=== PATIENT | male | born 1945 | race Hispanic/Latino ===

== ENCOUNTER 2023-03-22 17:57 | Inpatient (IN) | payer MEDICARE ==
[~2023-03-22] VITALS: Ht 165.1 cm; Wt 91.1 kg
[2023-03-22] MEDS ORDERED: DEXAMETHASONE SOD PHOSPHATE 4 MG/ML 1ML VIAL IVP ONE (18:30)
[2023-03-22] MEDS: LACTATED RINGERS 1000ML 1,000 ML IV SCH (20:26)
[2023-03-22] MEDS: CEFTAZIDIME PENTAHYDRATE 1 GM/VIAL IVPB SCH (20:26)
[2023-03-23] VITALS (22 sets, daily range): BP systolic 155–182; BP diastolic 67–104; PULSE 79–103; RESP 10–19; O2SAT 0–97
[2023-03-23] MEDS: CEFTAZIDIME PENTAHYDRATE 1 GM/VIAL IVPB SCH ×3 (03:20→19:37)
[2023-03-23] MEDS: INSULIN HUMULIN R 100 UNIT/ML 3ML SQ SCH ×9 (06:22→20:49)
[2023-03-23 06:57] LABS: HEMATOCRIT 37.7 % (42-54); IMMATURE GRANULOCYTE ABSOLUTE 0.03 K/uL (0-1); LYMPHOCYTES # (AUTO) 0.5 K/uL (1.0-4.8); LYMPHOCYTES % (AUTO) 7.9 % (21.0-51.0); MEAN CORPUSCULAR HEMOGLOBIN 30.5 pg (27.0-33.0); MEAN CORPUSCULAR HGB CONC 32.9 g/dL (32.0-36.0); MEAN CORPUSCULAR VOLUME 92.6 fL (79-99); MONOCYTES # (AUTO) 0.1 K/uL (0.1-1.0); MONOCYTES % (AUTO) 1.2 % (3.0-13.0); NEUTROPHILS # (AUTO) 5.5 K/uL (1.8-7.7); NEUTROPHILS % (AUTO) 90.4 % (40.0-77.0); PLATELET COUNT (AUTO) 145 K/uL (130-400); RED BLOOD CELL COUNT(AUTO) 4.07 MIL/uL (4.50-6.20); RED CELL DISTRIBUTION WIDTH 14.9 % (11.0-15.5); WHITE BLOOD COUNT (AUTO) 6.1 K/uL (4.8-10.8)
[2023-03-23 07:17] LABS: ALBUMIN 3.2 g/dL (3.5-5.0); BILIRUBIN,TOTAL 0.3 mg/dL (0.2-1.0); POTASSIUM 4.2 mmol/L (3.5-5.1); TOTAL PROTEIN, SERUM 7.4 g/dL (6.0-8.3)
[2023-03-23] MEDS ORDERED: CIPROFLOXACIN HCL/DEXAMETH 7.5 ML DROPS.SUSP OTIC ONE (08:00)
[2023-03-23] MEDS ORDERED: MIDAZOLAM HCL 1 MG/ML 2ML VIAL ONE (08:02)
[2023-03-23] MEDS ORDERED: LIDOCAINE PF 100MG/5ML (2%) SYRINGE 5ML ONE (08:02)
[2023-03-23] MEDS ORDERED: FENTANYL CITRATE PF 50 MCG/1 ML 2ML VIAL ONE (08:03)
[2023-03-23] MEDS ORDERED: PROPOFOL 10 MG/ML 20ML VIAL IV ONE (08:03)
[2023-03-23] MEDS ORDERED: ROCURONIUM 10MG/1ML SYR 10 MG/ML ML ONE (08:03)
[2023-03-23] MEDS ORDERED: LIDOCAINE 2%-EPI 1:200,000 20 ML VIAL IJ ONE ×2 (08:20→08:31)
[2023-03-23] MEDS: LACTATED RINGERS 1000ML 1,000 ML IV SCH (08:20)
[2023-03-23 08:22] LABS: SARS-CoV-2, RNA, NAAT NEGATIVE SARS CoV-2 (NEGATIVE)
[2023-03-23] MEDS ORDERED: CIPROFLOXACIN HCL 0.3% 2.5ML DROPS OP ONE (08:28)
[2023-03-23] MEDS ORDERED: LIDOCAINE HCL 1% 10 ML VIAL ONE (08:29)
[2023-03-23] MEDS ORDERED: EPHEDRINE SULFATE 50 MG/ML AMPULE ONE (08:36)
[2023-03-23] MEDS ORDERED: PHENYLEPHRINE HCL 10 MG/ML 1ML VIAL IV ONE (08:45)
[2023-03-23] MEDS ORDERED: ONDANSETRON 4MG INJ ONE (08:53)
[2023-03-23] MEDS ORDERED: LABETALOL 20MG SYG IV ONE (09:29)
[2023-03-23] MEDS ORDERED: GLUCAGON 1MG KIT 1 MG ML IM PRN (11:30)
[2023-03-23] MEDS ORDERED: DEXTROSE 50%-WATER 50 ML DISP.SYRIN IV PRN (11:30)
[2023-03-23 11:39] LABS: CRP QUANTITATIVE 10.8 mg/L (0.00-9.0)
[2023-03-23] MEDS ORDERED: DIPHENHYDRAMINE HCL 25 MG CAPSULE PO PRN (12:00)
[2023-03-23] MEDS: ACETAMINOPHEN WITH CODEINE 1 TAB TAB PO PRN ×2 (12:23→19:42)
[2023-03-23] MEDS ORDERED: HYDRALAZINE 20MG/ML VIAL IV PRN (12:30)
[2023-03-23] MEDS: TORSEMIDE 20 MG TAB PO SCH (12:42)
[2023-03-23] MEDS ORDERED: CARV25TA PO (18:44)
[2023-03-23] MEDS ORDERED: DILT60CA PO (18:44)
[2023-03-23] MEDS ORDERED: PIOG30TA70 PO (18:44)
[2023-03-23] MEDS ORDERED: TORS5TAB12 PO (18:44)
[2023-03-23] MEDS ORDERED: RIVA20TA PO (18:44)
[2023-03-23] MEDS ORDERED: OMEP20CA12 PO (18:44)
[2023-03-23] MEDS ORDERED: VITAD50000 PO (18:44)
[2023-03-23] MEDS ORDERED: CALC0.253 PO (18:44)
[2023-03-23] MEDS: DILTIAZEM 60MG TAB PO SCH (19:42)
[2023-03-23] MEDS: INSULIN GLARGINE 100 UNITS/ML 10 ML VIAL SQ SCH (20:48)
[2023-03-24] VITALS (9 sets, daily range): BP systolic 118–162; BP diastolic 64–99; PULSE 72–97; RESP 18–19; O2SAT 96–97
[2023-03-24] MEDS: CEFTAZIDIME PENTAHYDRATE 1 GM/VIAL IVPB SCH ×3 (02:08→17:52)
[2023-03-24 05:34] LABS: BASOPHILS # (AUTO) 0.01 K/uL (0.00-0.20); BASOPHILS % (AUTO) 0.2 % (0.0-5.0); EOSINOPHILS # (AUTO) 0.02 K/uL (0.00-0.70); EOSINOPHILS % (AUTO) 0.3 % (0.0-8.0); HEMATOCRIT 35.3 % (42-54); IMMATURE GRANULOCYTE ABSOLUTE 0.04 K/uL (0-1); LYMPHOCYTES # (AUTO) 0.8 K/uL (1.0-4.8); MEAN CORPUSCULAR HEMOGLOBIN 30.3 pg (27.0-33.0); MEAN CORPUSCULAR HGB CONC 32.9 g/dL (32.0-36.0); MEAN CORPUSCULAR VOLUME 92.2 fL (79-99); MONOCYTES # (AUTO) 0.6 K/uL (0.1-1.0); MONOCYTES % (AUTO) 9.2 % (3.0-13.0); NEUTROPHILS # (AUTO) 4.7 K/uL (1.8-7.7); NEUTROPHILS % (AUTO) 76.7 % (40.0-77.0); PLATELET COUNT (AUTO) 151 K/uL (130-400); RED BLOOD CELL COUNT(AUTO) 3.83 MIL/uL (4.50-6.20); WHITE BLOOD COUNT (AUTO) 6.2 K/uL (4.8-10.8)
[2023-03-24 05:49] LABS: CREATININE 1.8 mg/dL (0.5-1.5); POTASSIUM 3.5 mmol/L (3.5-5.1)
[2023-03-24] MEDS: INSULIN HUMULIN R 100 UNIT/ML 3ML SQ SCH ×7 (06:23→21:00)
[2023-03-24] MEDS: TORSEMIDE 20 MG TAB PO SCH (08:36)
[2023-03-24] MEDS: DILTIAZEM 60MG TAB PO SCH ×2 (08:37→21:52)
[2023-03-24 09:23] LABS: HEMOGLOBIN A1C 7.9 % (4.0-6.0)
[2023-03-24 09:31] LABS: CHOLESTEROL 129 mg/dL (<200); HDL CHOLESTEROL 48 mg/dL (29-71); LDL DIRECT 60 mg/dL (0-99); TRIGLYCERIDES 90 mg/dL (30-200)
[2023-03-24] MEDS: CIPROFLOXACIN HCL 0.2%/HYDROCORT 1% 10 ML OTIC SUSP OTIC SCH (11:52)
[2023-03-24] MEDS ORDERED: ARTIFICAL TEARS SOL 15 ML OS SCH (14:30)
[2023-03-24] MEDS: ACETAMINOPHEN WITH CODEINE 1 TAB TAB PO PRN ×2 (18:03→21:56)
[2023-03-24 18:14] LABS: INR 0.93 (0.85-1.15); PROTHROMBIN TIME 10.7 SEC (9.6-11.6)
[2023-03-24 18:16] LABS: PARTIAL THROMBOPLASTIN TIME 27.3 SEC (26.3-35.5)
[2023-03-24] MEDS: ARTIFICAL TEARS SOL 15 ML OS SCH ×4 (19:20→23:28)
[2023-03-24] MEDS: ARTIFICIAL TEARS 3.5 GM OINTMENT OS SCH (19:21)
[2023-03-24] MEDS: CARVEDILOL 25 MG TABLET PO SCH (21:52)
[2023-03-24] MEDS: INSULIN GLARGINE 100 UNITS/ML 10 ML VIAL SQ SCH (21:55)
[2023-03-25] VITALS (7 sets, daily range): BP systolic 116–161; BP diastolic 80–99; PULSE 69–92; RESP 16–18; O2SAT 96–98
[2023-03-25] MEDS: ARTIFICAL TEARS SOL 15 ML OS SCH ×24 (00:22→23:36)
[2023-03-25] MEDS: CEFTAZIDIME PENTAHYDRATE 1 GM/VIAL IVPB SCH ×3 (02:05→20:03)
[2023-03-25] MEDS: INSULIN HUMULIN R 100 UNIT/ML 3ML SQ SCH ×7 (05:11→21:00)
[2023-03-25 05:22] LABS: BASOPHILS # (AUTO) 0.01 K/uL (0.00-0.20); BASOPHILS % (AUTO) 0.2 % (0.0-5.0); EOSINOPHILS # (AUTO) 0.15 K/uL (0.00-0.70); EOSINOPHILS % (AUTO) 2.7 % (0.0-8.0); HEMATOCRIT 34.6 % (42-54); IMMATURE GRANULOCYTE ABSOLUTE 0.03 K/uL (0-1); LYMPHOCYTES % (AUTO) 18.5 % (21.0-51.0); MEAN CORPUSCULAR HEMOGLOBIN 30.2 pg (27.0-33.0); MEAN CORPUSCULAR HGB CONC 32.9 g/dL (32.0-36.0); MEAN CORPUSCULAR VOLUME 91.8 fL (79-99); MONOCYTES # (AUTO) 0.6 K/uL (0.1-1.0); MONOCYTES % (AUTO) 10.7 % (3.0-13.0); NEUTROPHILS # (AUTO) 3.8 K/uL (1.8-7.7); NEUTROPHILS % (AUTO) 67.4 % (40.0-77.0); PLATELET COUNT (AUTO) 154 K/uL (130-400); RED BLOOD CELL COUNT(AUTO) 3.77 MIL/uL (4.50-6.20); RED CELL DISTRIBUTION WIDTH 14.9 % (11.0-15.5); WHITE BLOOD COUNT (AUTO) 5.6 K/uL (4.8-10.8)
[2023-03-25 05:42] LABS: ALBUMIN 2.9 g/dL (3.5-5.0); BILIRUBIN,TOTAL 0.3 mg/dL (0.2-1.0); CREATININE 1.9 mg/dL (0.5-1.5); POTASSIUM 3.1 mmol/L (3.5-5.1); TOTAL PROTEIN, SERUM 6.6 g/dL (6.0-8.3)
[2023-03-25] MEDS: CIPROFLOXACIN HCL 0.2%/HYDROCORT 1% 10 ML OTIC SUSP OTIC SCH (09:00)
[2023-03-25] MEDS: CALCITRIOL 0.25 MCG CAP PO SCH (09:40)
[2023-03-25] MEDS: CARVEDILOL 25 MG TABLET PO SCH ×2 (09:41→21:45)
[2023-03-25] MEDS: ACETAMINOPHEN WITH CODEINE 1 TAB TAB PO PRN ×2 (09:41→17:51)
[2023-03-25] MEDS: TORSEMIDE 20 MG TAB PO SCH (09:41)
[2023-03-25] MEDS: DILTIAZEM 60MG TAB PO SCH ×2 (09:42→21:45)
[2023-03-25] MEDS ORDERED: 0.9% NACL 500ML IV.SOLN 500 ML IV ONE (11:00)
[2023-03-25] MEDS ORDERED: POTASSIUM CHLORIDE 10% ELIXIR 20 MEQ/15 ML UDCUP PO PRN (11:00)
[2023-03-25] MEDS ORDERED: MAGNESIUM 2GM PREMIX 50ML 50 ML IV PRN (11:00)
[2023-03-25] MEDS ORDERED: POTASSIUM CHLORIDE 20MEQ/100ML 100 ML IV PRN (11:00)
[2023-03-25] MEDS ORDERED: LACTULOSE 20 GM/30 ML UDCUP PO ONE (18:00)
[2023-03-25] MEDS: ARTIFICIAL TEARS 3.5 GM OINTMENT OS SCH (21:00)
[2023-03-25] MEDS: 0.9%NACL 10ML VIAL IV SCH (21:24)
[2023-03-25] MEDS: INSULIN GLARGINE 100 UNITS/ML 10 ML VIAL SQ SCH (21:51)
[2023-03-26] VITALS (7 sets, daily range): BP systolic 112–160; BP diastolic 63–98; PULSE 65–86; RESP 17–20; O2SAT 98–99
[2023-03-26] MEDS: ARTIFICAL TEARS SOL 15 ML OS SCH ×23 (00:28→23:00)
[2023-03-26 05:28] LABS: EOSINOPHILS # (AUTO) 0.12 K/uL (0.00-0.70); HEMATOCRIT 34.9 % (42-54); IMMATURE GRANULOCYTE ABSOLUTE 0.03 K/uL (0-1); LYMPHOCYTES % (AUTO) 16.5 % (21.0-51.0); MEAN CORPUSCULAR HEMOGLOBIN 30.6 pg (27.0-33.0); MEAN CORPUSCULAR HGB CONC 33.8 g/dL (32.0-36.0); MEAN CORPUSCULAR VOLUME 90.6 fL (79-99); MONOCYTES # (AUTO) 0.6 K/uL (0.1-1.0); MONOCYTES % (AUTO) 9.9 % (3.0-13.0); NEUTROPHILS # (AUTO) 4.2 K/uL (1.8-7.7); NEUTROPHILS % (AUTO) 71.1 % (40.0-77.0); PLATELET COUNT (AUTO) 149 K/uL (130-400); RED BLOOD CELL COUNT(AUTO) 3.85 MIL/uL (4.50-6.20); RED CELL DISTRIBUTION WIDTH 14.6 % (11.0-15.5)
[2023-03-26] MEDS: INSULIN HUMULIN R 100 UNIT/ML 3ML SQ SCH ×7 (05:52→20:35)
[2023-03-26 05:58] LABS: ALBUMIN 2.9 g/dL (3.5-5.0); BILIRUBIN,TOTAL 0.3 mg/dL (0.2-1.0); CREATININE 1.9 mg/dL (0.5-1.5); TOTAL PROTEIN, SERUM 6.7 g/dL (6.0-8.3)
[2023-03-26 06:04] LABS: POTASSIUM 2.9 mmol/L (3.5-5.1)
[2023-03-26] MEDS ORDERED: POTASSIUM CHLORIDE 10% ELIXIR 20 MEQ/15 ML UDCUP PO ONE (07:30)
[2023-03-26] MEDS: CALCITRIOL 0.25 MCG CAP PO SCH (08:19)
[2023-03-26] MEDS: TORSEMIDE 20 MG TAB PO SCH (08:19)
[2023-03-26] MEDS: CARVEDILOL 25 MG TABLET PO SCH ×2 (08:19→20:27)
[2023-03-26] MEDS: DILTIAZEM 60MG TAB PO SCH ×2 (08:19→20:27)
[2023-03-26] MEDS: 0.9%NACL 10ML VIAL IV SCH ×2 (08:24→20:26)
[2023-03-26] MEDS: CEFTAZIDIME PENTAHYDRATE 1 GM/VIAL IVPB SCH ×2 (08:24→20:26)
[2023-03-26] MEDS: CIPROFLOXACIN HCL 0.2%/HYDROCORT 1% 10 ML OTIC SUSP OTIC SCH (09:00)
[2023-03-26] MEDS: ACETAMINOPHEN WITH CODEINE 1 TAB TAB PO PRN ×2 (11:38→22:39)
[2023-03-26] MEDS: ARTIFICIAL TEARS 3.5 GM OINTMENT OS SCH (20:26)
[2023-03-26] MEDS: INSULIN GLARGINE 100 UNITS/ML 10 ML VIAL SQ SCH (20:35)
[2023-03-27] MEDS: INSULIN HUMULIN R 100 UNIT/ML 3ML SQ SCH ×7 (07:30→20:44)
[2023-03-27 08:00] VITALS: BP 173/89; PULSE 66; RESP 16; O2SAT 99
[2023-03-27 10:29] LABS: ALBUMIN 2.7 g/dL (3.5-5.0); BILIRUBIN,TOTAL 0.3 mg/dL (0.2-1.0); CREATININE 1.8 mg/dL (0.5-1.5); POTASSIUM 3.1 mmol/L (3.5-5.1); TOTAL PROTEIN, SERUM 6.5 g/dL (6.0-8.3)
[2023-03-27] MEDS: ARTIFICAL TEARS SOL 15 ML OS SCH ×19 (10:37→23:12)
[2023-03-27] MEDS: CEFTAZIDIME PENTAHYDRATE 1 GM/VIAL IVPB SCH ×2 (10:39→20:12)
[2023-03-27] MEDS: 0.9%NACL 10ML VIAL IV SCH ×2 (10:39→20:11)
[2023-03-27] MEDS: CIPROFLOXACIN HCL 0.2%/HYDROCORT 1% 10 ML OTIC SUSP OTIC SCH (10:39)
[2023-03-27] MEDS: TORSEMIDE 20 MG TAB PO SCH (10:40)
[2023-03-27] MEDS: DILTIAZEM 60MG TAB PO SCH ×2 (10:40→20:42)
[2023-03-27] MEDS: CARVEDILOL 25 MG TABLET PO SCH ×2 (10:40→20:43)
[2023-03-27] MEDS: CALCITRIOL 0.25 MCG CAP PO SCH (10:41)
[2023-03-27 12:00] VITALS: BP 102/81; PULSE 88; RESP 18
[2023-03-27] MEDS: ACETAMINOPHEN WITH CODEINE 1 TAB TAB PO PRN ×2 (12:18→20:14)
[2023-03-27 14:36] LABS: BASOPHILS # (AUTO) 0.01 K/uL (0.00-0.20); BASOPHILS % (AUTO) 0.2 % (0.0-5.0); EOSINOPHILS # (AUTO) 0.14 K/uL (0.00-0.70); HEMATOCRIT 36.9 % (42-54); IMMATURE GRANULOCYTE ABSOLUTE 0.01 K/uL (0-1); LYMPHOCYTES # (AUTO) 1.1 K/uL (1.0-4.8); LYMPHOCYTES % (AUTO) 22.6 % (21.0-51.0); MEAN CORPUSCULAR HEMOGLOBIN 30.4 pg (27.0-33.0); MEAN CORPUSCULAR HGB CONC 33.3 g/dL (32.0-36.0); MEAN CORPUSCULAR VOLUME 91.3 fL (79-99); MONOCYTES # (AUTO) 0.5 K/uL (0.1-1.0); MONOCYTES % (AUTO) 10.4 % (3.0-13.0); NEUTROPHILS % (AUTO) 63.6 % (40.0-77.0); PLATELET COUNT (AUTO) 145 K/uL (130-400); RED BLOOD CELL COUNT(AUTO) 4.04 MIL/uL (4.50-6.20); RED CELL DISTRIBUTION WIDTH 14.7 % (11.0-15.5); WHITE BLOOD COUNT (AUTO) 4.7 K/uL (4.8-10.8)
[2023-03-27] MEDS ORDERED: LACTULOSE 20 GM/30 ML UDCUP PO PRN (15:30)
[2023-03-27] MEDS: KCL 20 MEQ ERTAB PO PRN ×3 (15:56→23:12)
[2023-03-27 16:00] VITALS: BP 144/62; PULSE 73; RESP 18
[2023-03-27 20:00] VITALS: BP 134/80; PULSE 79; RESP 18; O2SAT 98
[2023-03-27] MEDS: ARTIFICIAL TEARS 3.5 GM OINTMENT OS SCH (20:11)
[2023-03-27] MEDS: INSULIN GLARGINE 100 UNITS/ML 10 ML VIAL SQ SCH (20:44)
[2023-03-28] VITALS: BP 139/85; PULSE 73; RESP 18
[2023-03-28] MEDS: ARTIFICAL TEARS SOL 15 ML OS SCH ×14 (01:00→13:39)
[2023-03-28 04:00] VITALS: BP 94/56; PULSE 64; RESP 18
[2023-03-28] MEDS: INSULIN HUMULIN R 100 UNIT/ML 3ML SQ SCH ×4 (05:43→11:38)
[2023-03-28 05:53] LABS: EOSINOPHILS # (AUTO) 0.21 K/uL (0.00-0.70); HEMATOCRIT 35.8 % (42-54); IMMATURE GRANULOCYTE ABSOLUTE 0.01 K/uL (0-1); LYMPHOCYTES # (AUTO) 1.3 K/uL (1.0-4.8); LYMPHOCYTES % (AUTO) 23.6 % (21.0-51.0); MEAN CORPUSCULAR HEMOGLOBIN 30.5 pg (27.0-33.0); MEAN CORPUSCULAR HGB CONC 32.1 g/dL (32.0-36.0); MONOCYTES # (AUTO) 0.6 K/uL (0.1-1.0); MONOCYTES % (AUTO) 10.6 % (3.0-13.0); NEUTROPHILS # (AUTO) 3.3 K/uL (1.8-7.7); NEUTROPHILS % (AUTO) 61.6 % (40.0-77.0); PLATELET COUNT (AUTO) 159 K/uL (130-400); RED BLOOD CELL COUNT(AUTO) 3.77 MIL/uL (4.50-6.20); RED CELL DISTRIBUTION WIDTH 14.6 % (11.0-15.5); WHITE BLOOD COUNT (AUTO) 5.3 K/uL (4.8-10.8)
[2023-03-28 06:18] LABS: ALBUMIN 2.7 g/dL (3.5-5.0); BILIRUBIN,TOTAL 0.3 mg/dL (0.2-1.0); CREATININE 2.1 mg/dL (0.5-1.5); POTASSIUM 3.3 mmol/L (3.5-5.1); TOTAL PROTEIN, SERUM 6.6 g/dL (6.0-8.3)
[2023-03-28] MEDS: KCL 20 MEQ ERTAB PO PRN ×2 (06:28→08:17)
[2023-03-28 08:00] VITALS: BP 124/76; PULSE 63; RESP 18; O2SAT 98
[2023-03-28 08:15] VITALS: BP 124/76
[2023-03-28] MEDS: CEFTAZIDIME PENTAHYDRATE 1 GM/VIAL IVPB SCH (08:15)
[2023-03-28] MEDS: CARVEDILOL 25 MG TABLET PO SCH (08:15)
[2023-03-28] MEDS: CALCITRIOL 0.25 MCG CAP PO SCH (08:16)
[2023-03-28] MEDS: DILTIAZEM 60MG TAB PO SCH (08:16)
[2023-03-28] MEDS: TORSEMIDE 20 MG TAB PO SCH (08:16)
[2023-03-28] MEDS: 0.9%NACL 10ML VIAL IV SCH (08:19)
[2023-03-28] MEDS: CIPROFLOXACIN HCL 0.2%/HYDROCORT 1% 10 ML OTIC SUSP OTIC SCH (09:05)
== END 2023-03-28 17:46 | disposition home or self-care (01) | DRG 155 ==
LOC: EDH 17:57 → OBSVTOIN 17:58 → DIRECT 17:58 → 3AH 03-23 10:10
PROVIDERS: ADMIT Otolaryngology; ATTEND Otolaryngology
PROC: 02HV33Z Insertion of Infusion Device into Superior Vena Cava, Percutaneous Approach (ICD-10-PCS; 2023-03-25)
PROC: 09B Ear, Nose, Sinus, Excision (ICD-10-PCS; principal; 2023-03-27)
DX: H60.22 Malignant otitis externa, left ear (principal); E44.1 Mild protein-calorie malnutrition; N17.9 Acute kidney failure, unspecified; E11.65 Type 2 diabetes mellitus with hyperglycemia; Z20.822 Contact with and (suspected) exposure to COVID-19; G51.0 Bell's palsy; I10 Essential (primary) hypertension; I48.91 Unspecified atrial fibrillation; E66.09 Other obesity due to excess calories; E87.6 Hypokalemia; Z79.01 Long term (current) use of anticoagulants; Z95.0 Presence of cardiac pacemaker; Z68.33 Body mass index [BMI] 33.0-33.9, adult; Z83.3 Family history of diabetes mellitus
CPT/HCPCS: 36415; 36569; 70480; 71045; 80048; 80053; 80061; 82306; 82948; 83036; 83615; 83735; 84145; 85025; 85610; 85651; 85730; 86140; 87070; 87076; 87077; 87186; 87205; 87635; 93005; 97039; C1894; G0378; J0713; J1100; J1815; J2001; J2250; J2371; J2405; J2704; J3010; J3475; J3480; J3490; J7120; A4215; A4221; A4222; A4223; A4649; A4930